=== PATIENT | male | born 2000 | race American Indian/Alaskan Native ===

== ENCOUNTER 2019-11-24 02:17 | Emergency (ER) | payer MEDICAID ==
--- NOTE | 2019-11-24 03:04 | Emergency Department Report ---
HPI - HPI HPI: 19-year-old -[place] male presents to the emergency department with complaint of suicidal ideations. The patient says he has been feeling suicidal for the past 24 hours. When asked what makes him feel this way he responds with "my mom gave up on me." He continues saying "she is not there for me when I get out of residential and does not want me to live with her." Essentially he admits to being homeless. He has a psychiatric history of bipolar disorder. He denies any auditory or visual hallucinations or any homicidal ideations. The patient says that he would "bang my head against the wall" in order to harm himself. He denies any current alcohol intoxication or illicit drug use. <NICK REYNOLDS - Last Filed: 11/24/19 04:35> <MOSHE COREAS - Last Filed: 11/24/19 16:30> - General Time Seen by Provider: 11/24/19 02:23 ED Past Medical Hx - Past Medical History Previous Medical History?: No - Surgical History Past Surgical History?: No - Social History Smoking Status: Current Every Day Smoker Substance Use Type: None <NICK REYNOLDS - Last Filed: 11/24/19 04:35> ED Review of Systems ROS: Stated complaint: SUICIDAL IDEATIONS Other details as noted in HPI Comment: All other systems reviewed and negative Constitutional: denies: fever Respiratory: denies: shortness of breath Cardiovascular: denies: chest pain Gastrointestinal: denies: abdominal pain Musculoskeletal: denies: back pain Neurological: denies: headache, weakness Psychiatric: suicidal thoughts. denies: auditory hallucinations, visual hallucinations, homicidal thoughts <NICK REYNOLDS - Last Filed: 11/24/19 04:35> ROS: Stated complaint: SUICIDAL IDEATIONS Other details as noted in HPI <MOSHE COREAS - Last Filed: 11/24/19 16:30> Physical Exam - Physical Exam Vital Signs: Vital Signs 11/24/19 02:48 Temperature 98.7 F Pulse Rate 105 H Respiratory 18 Rate Blood Pressure 143/77 O2 Sat by Pulse 99 Oximetry Physical Exam: GENERAL: The patient is well-developed well-nourished. HENT: Normocephalic. Atraumatic. Patient has moist mucous membranes. EYES: Extraocular motions are intact. NECK: Supple. Trachea is midline. CHEST/LUNGS: Clear to auscultation. There is no respiratory distress noted. HEART/CARDIOVASCULAR: Regular. There is no tachycardia. ABDOMEN: Abdomen is soft, nontender. Patient has normal bowel sounds. SKIN: Skin is warm and dry. NEURO: The patient is awake, alert, and oriented. The patient is cooperative. The patient has no focal neurologic deficits. Normal speech. MUSCULOSKELETAL: There is no tenderness or deformity. There is no limitation range of motion. There is no evidence of acute injury. <NICK REYNOLDS S - Last Filed: 11/24/19 04:35> - Physical Exam Vital Signs: Vital Signs 11/24/19 11/24/19 11/24/19 02:48 02:58 03:08 Temperature 98.7 F 98.7 F Pulse Rate 105 H 98 H Respiratory 18 20 18 Rate Blood Pressure 143/77 Blood Pressure 143/77 [Left] O2 Sat by Pulse 99 99 99 Oximetry 11/24/19 11/24/19 09:40 14:00 Temperature 98.3 F Pulse Rate 101 H 77 Respiratory 20 18 Rate Blood Pressure Blood Pressure 148/86 136/85 [Left] O2 Sat by Pulse 99 98 Oximetry <MOSHE COREAS - Last Filed: 11/24/19 16:30> ED Course Vital Signs 11/24/19 02:48 Temperature 98.7 F Pulse Rate 105 H Respiratory 18 Rate Blood Pressure 143/77 O2 Sat by Pulse 99 Oximetry <NICK REYNOLDS S - Last Filed: 11/24/19 04:35> Vital Signs 11/24/19 11/24/19 11/24/19 02:48 02:58 03:08 Temperature 98.7 F 98.7 F Pulse Rate 105 H 98 H Respiratory 18 20 18 Rate Blood Pressure 143/77 Blood Pressure 143/77 [Left] O2 Sat by Pulse 99 99 99 Oximetry 11/24/19 11/24/19 09:40 14:00 Temperature 98.3 F Pulse Rate 101 H 77 Respiratory 20 18 Rate Blood Pressure Blood Pressure 148/86 136/85 [Left] O2 Sat by Pulse 99 98 Oximetry <MOSHE COREAS - Last Filed: 11/24/19 16:30> ED Medical Decision Making - Lab Data Result diagrams: 11/24/19 03:05 11/24/19 03:05 - Medical Decision Making This patient presents to the emergency department for a mental health evaluation. He has a history of bipolar disorder and says that he was suicidal secondary to some family issues. The patient has been made at 1013 secondary to the suicidal ideations. His labs have been unremarkable including CBC, metabolic panel, blood alcohol level, urinalysis and urine drug screen. Vital signs stable throughout his ED course. The patient will be seen by the psychiatric team in the morning. Otherwise he appears medically cleared for psychiatric placement. - Differential Diagnosis Bipolar disorder, schizophrenia, schizoaffective, substance abuse <NICK REYNOLDS - Last Filed: 11/24/19 04:35> - Lab Data Result diagrams: 11/24/19 03:05 11/24/19 03:05 - Medical Decision Making Mr. Smith is a 19 years old male who admitted to the ER for evaluation of suicidal ideation. Patient has history of bipolar disorder. Patient has been evaluated by our psychiatric team and advised to discharge patient home to follow-up as an outpatient. I personally examined Mr. Smith, he is alert oriented x3 no acute distress. Patient denied any suicidal or homicidal ideation. No visual or auditory hallucination. Patient is medically and psychiatrically stable for discharge. <MOSHE COREAS - Last Filed: 11/24/19 16:30> Critical Care Time: No Critical care attestation.: If time is entered above; I have spent that time in minutes in the direct care of this critically ill patient, excluding procedure time. <NICK REYNOLDS - Last Filed: 11/24/19 04:35> Critical care attestation.: If time is entered above; I have spent that time in minutes in the direct care of this critically ill patient, excluding procedure time. <MOSHE COREAS - Last Filed: 11/24/19 16:30> ED Disposition Is pt being admited?: No Time of Disposition: 04:36 <NICK REYNOLDS - Last Filed: 11/24/19 04:35> Is pt being admited?: No <MOSHE COREAS - Last Filed: 11/24/19 16:30> Clinical Impression: Suicidal ideations Disposition: DC-01 TO HOME OR SELFCARE Condition: Stable Instructions: Suicide Prevention for Adults (ED) Referrals: PRIMARY CARE, [Primary Care Provider] - 3-5 Days
[2019-11-24 03:09] LABS: Bilirubin,Urine NEG (Negative); Blood,Urine NEG (Negative); Color,Urine Yellow (Yellow); Mucus,Urine FEW /HPF; Protein,Urine <15 mg/dL mg/dL (Negative)
[2019-11-24 03:18] LABS: Amphetamine Screen,Urine PRESUMPTIVE NEGATIVE; Benzodiazepines Screen,Urine PRESUMPTIVE NEGATIVE; Cannabinoid Screen,Urine PRESUMPTIVE NEGATIVE; Cocaine Screen,Urine PRESUMPTIVE NEGATIVE; Methadone Screen,Urine PRESUMPTIVE NEGATIVE; Opiate Screen,Urine PRESUMPTIVE NEGATIVE
[2019-11-24 03:32] LABS: Basophils % (Auto) 0.5 % (0.0-1.8); Eosinophils % (Auto) 0.3 % (0.0-4.3); Hematocrit 40.4 % (35.5-45.6); Hemoglobin 13.4 gm/dl (11.8-15.2); Lymphocytes # (Auto) 2.8 K/mm3 (1.2-5.4); Lymphocytes % (Auto) 29.8 % (13.4-35.0); Mean Corpuscular HGB Conc 33 % (32-34); Mean Corpuscular Volume 82 fl (84-94); Monocytes # (Auto) 0.9 K/mm3 (0.0-0.8); Platelet Count 208 K/mm3 (140-440); Red Blood Count 4.93 M/mm3 (3.65-5.03); Red Cell Distribution Width 15.2 % (13.2-15.2)
[2019-11-24 03:43] LABS: BUN/Creatinine Ratio 12; Blood Urea Nitrogen 11 mg/dL (9-20); Calcium 9.7 mg/dL (8.4-10.2); Hemolysis Index 4
[2019-11-24 16:23] VITALS: BP 136/85
== END 2019-11-24 16:50 | disposition home or self-care (01) ==
LOC: EEVIPCON 02:17 → ED 02:17
DX: R45.851 Suicidal ideations (principal); F17.200 Nicotine dependence, unspecified, uncomplicated
CPT/HCPCS: 36415; 80048; 80307; 80320; 81001; 85025; G0480

== ENCOUNTER 2021-02-05 22:06 | Emergency (ER) | payer MEDICAID | END 2021-02-06 01:00 | LOC: ED 22:06 ==

== ENCOUNTER 2021-02-06 01:51 | Emergency (ER) | payer MEDICAID ==
[2021-02-06 02:02] VITALS: BP 153/85
[2021-02-06 03:02] LABS: Basophils # (Auto) 0.1 K/mm3 (0.0-0.1); Basophils % (Auto) 0.6 % (0.0-1.8); Eosinophils # (Auto) 0.1 K/mm3 (0.0-0.4); Eosinophils % (Auto) 1.1 % (0.0-4.3); Hematocrit 40.4 % (35.5-45.6); Hemoglobin 13.8 gm/dl (11.8-15.2); Lymphocytes % (Auto) 37.8 % (13.4-35.0); Mean Corpuscular HGB Conc 34 % (32-34); Mean Corpuscular Volume 82 fl (84-94); Monocytes # (Auto) 0.8 K/mm3 (0.0-0.8); Monocytes % (Auto) 7.2 % (0.0-7.3); Platelet Count 268 K/mm3 (140-440); Red Cell Distribution Width 14.5 % (13.2-15.2)
[2021-02-06 03:22] LABS: BUN/Creatinine Ratio 13; Blood Urea Nitrogen 12 mg/dL (9-20); Calcium 9.1 mg/dL (8.4-10.2); Hemolysis Index 10
[2021-02-06 03:51] LABS: Bilirubin,Urine NEG (Negative); Blood,Urine NEG (Negative); Color,Urine Yellow (Yellow); Mucus,Urine FEW /HPF; Protein,Urine <15 mg/dL mg/dL (Negative); Urobilinogen,Urine < 2.0 mg/dL (<2.0); WBC,Urine < 1.0 /HPF (0.0-6.0)
[2021-02-06 03:59] LABS: Amphetamine Screen,Urine PRESUMPTIVE NEGATIVE; Benzodiazepines Screen,Urine PRESUMPTIVE NEGATIVE; Cannabinoid Screen,Urine PRESUMPTIVE POSITIVE; Cocaine Screen,Urine PRESUMPTIVE NEGATIVE; Methadone Screen,Urine PRESUMPTIVE NEGATIVE; Opiate Screen,Urine PRESUMPTIVE NEGATIVE
== END 2021-02-06 03:23 | disposition left against medical advice (07) ==
LOC: ED 01:51
DX: R45.851 Suicidal ideations (principal); Z53.21 Procedure and treatment not carried out due to patient leaving prior to being seen by health care provider
CPT/HCPCS: 36415; 80048; 80307; 80320; 81001; 85025; G0480

== ENCOUNTER 2021-03-10 07:47 | Emergency (ER) | payer MEDICAID ==
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
[2021-03-10 08:50] VITALS: BP 157/94
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
== END 2021-03-10 14:28 | disposition home or self-care (01) ==
LOC: ED 07:47
DX: F25.0 Schizoaffective disorder, bipolar type (principal); F17.200 Nicotine dependence, unspecified, uncomplicated; Z20.822 Contact with and (suspected) exposure to COVID-19; Z59.0 Homelessness
CPT/HCPCS: 99284; U0003